=== PATIENT | female | born 1990 | race Caucasian/White ===

== ENCOUNTER 2016-12-19 21:17 | Emergency (ER) | payer OTHER ==
[~2016-12-19] VITALS: Ht 152.4 cm; Wt 72.6 kg
[2016-12-19] MEDS ORDERED: GAS-80CH PO (21:33)
[2016-12-19] MEDS ORDERED: KETOROLAC 30 MG/ML VIAL (J1885) IV ONE (23:30)
[2016-12-19] MEDS ORDERED: ONDANSETRON 4MG/2ML VIAL (J2405) IV ONE (23:30)
[2016-12-19] MEDS ORDERED: NS 1,000 ML IV ONE (23:30)
[2016-12-20] MEDS ORDERED: LORazepam 1 MG TAB PO ONE (00:15)
[2016-12-20 01:15] LABS: MEAN CORPUSCULAR HEMOGLOBIN 29.6 pg (27.0-33.0); MEAN CORPUSCULAR HGB CONC 33.5 g/dl (32.0-36.5); MEAN CORPUSCULAR VOLUME 88.3 fl (80.0-96.0); RED CELL DISTRIBUTION WIDTH 12.6 % (11.5-14.5); WHITE BLOOD COUNT 12.4 K/mm3 (4.0-10.0)
[2016-12-20 01:40] LABS: ALBUMIN 4.1 GM/DL (3.2-5.2); ALKALINE PHOSPHATASE 129 U/L (45-117); ALT/SGPT 22 U/L (12-78); ANION GAP 11 MEQ/L (8-16); AST/SGOT 21 U/L (15-37); BILIRUBIN,TOTAL 0.3 MG/DL (0.2-1.0); BLOOD UREA NITROGEN 10 MG/DL (7-18); CALCIUM LEVEL 9.5 MG/DL (8.5-10.1); CARBON DIOXIDE LEVEL 25 MEQ/L (21-32); CHLORIDE LEVEL 104 MEQ/L (98-107); CREATININE FOR GFR 0.68 MG/DL (0.55-1.02); GLOMERULAR FILTRATION RATE > 60.0 (>60); GLUCOSE, FASTING 110 MG/DL (70-105); POTASSIUM SERUM 3.8 MEQ/L (3.5-5.1); SODIUM LEVEL 140 MEQ/L (136-145); TOTAL PROTEIN 8.2 GM/DL (6.4-8.2)
--- NOTE | 2016-12-20 01:40 | REPUSA ---
CLINICAL HISTORY: Abdominal pain. TECHNIQUE: Multiple axial, sagittal and coronal CT images were obtained through the abdomen and pelvi s without administration of oral or IV contrast material. COMMENTS: The liver is mildly enlarged without mass or defect. There is no intra or extrahepatic biliary ductal dilatation. The spleen is normal. The gallbladder is surgically absent. The pancreas is of normal co ntour and attenuation characteristics. There is no evidence of adrenal mass. Mild fullness of the right collecting system. The kidneys are normal in size, shape and configuration. No renal or ureteral calculi are identified. There is no left hydroureter or hydronephrosis. There is no evidence for appendicitis. There is no bowel wall thickening. No evidence for small or la rge bowel obstruction. There is no evidence of abdominal ascites or lymphadenopathy. There is no evidence of intrinsic or extrinsic bladder mass. There is no pelvic ascites or lymphadeno tunde. Images of the lung bases show no evidence of pleural or parenchymal mass. There are no pleural effusi ons. The bony structures are free of lytic or blastic lesions. Multilevel degenerative changes are seen in volving the thoracolumbar spine. Scattered calcifications are seen involving the aorta and major branches compatible with atherosclero sis. IMPRESSION: Mild hepatomegaly. Prior cholecystectomy. Thickened bladder. Underdistention versus mild cystitis. Please evaluate clinically and correlate wit h urinalysis if needed. Mild fullness of the right collecting system. Recent passage of a calculus versus an ascending urinar y tract infection. Thank you for your kind referral of this patient.
[2016-12-20 02:09] VITALS: BP 121/71
[2016-12-20] MEDS ORDERED: PYRI200T5 PO (02:12)
[2016-12-20] MEDS ORDERED: CIPR500T89 PO (02:12)
[2016-12-20] MEDS ORDERED: ZOFR4TAB3 PO (02:13)
[2016-12-20] MEDS ORDERED: PHENAZOPYRIDINE 100 MG TAB PO ONE (02:15)
[2016-12-20] MEDS ORDERED: CIPROFLOXACIN 500 MG TAB PO ONE (02:15)
== END 2016-12-20 02:27 | disposition home or self-care (01) ==
LOC: M ED 22:08
DX: N30.00 Acute cystitis without hematuria (principal); R11.2 Nausea with vomiting, unspecified; R19.7 Diarrhea, unspecified; Z88.5 Allergy status to narcotic agent; Z79.899 Other long term (current) drug therapy
CPT/HCPCS: 74176; 80053; 81001; 81025; 83690; 85027; 96374; 96375; 99283; J1885; J2405

== ENCOUNTER 2017-06-02 11:55 | Emergency (ER) | payer OTHER ==
[~2017-06-02] VITALS: Ht 152.4 cm; Wt 68.1 kg
[~2017-06-02 11:55] MED LIST: CIPR-249 PO; GAS-80CH PO; PYRI1TAB5 PO; ZOFR4TAB3 PO
[2017-06-02] MEDS ORDERED: CLON0.25 (12:06)
[2017-06-02] MEDS ORDERED: TRINTAB3 PO (12:06)
[2017-06-02] MEDS ORDERED: VENL37.598 (12:06)
[2017-06-02] MEDS ORDERED: AUGM875T28 PO (13:21)
[2017-06-02] MEDS ORDERED: KETO2CR EXT (13:23)
[2017-06-02 13:28] VITALS: BP 120/80
== END 2017-06-02 13:34 | disposition home or self-care (01) ==
LOC: M ED 11:55
DX: B35.6 Tinea cruris (principal); F33.9 Major depressive disorder, recurrent, unspecified; F41.9 Anxiety disorder, unspecified; Z79.3 Long term (current) use of hormonal contraceptives; Z79.899 Other long term (current) drug therapy; Z88.5 Allergy status to narcotic agent